=== PATIENT | female | born 1995 | race Caucasian/White ===

== ENCOUNTER 2024-09-10 13:01 | Outpatient (CLI) | payer MEDICAID, SELFPAY ==
--- NOTE | 2024-09-10 13:07 | XR_ITS ---
Examination: Biophysical profile, ultrasound Date and time of exam: September 10, 2024 1429 hours INDICATIONS: Diagnosis cholestasis of Technique: Multiple transabdominal sonographic images of the pelvis abdomen obtained. Attention is directed to the breathing movement, gross body movement, amniotic fluid volume and tone. Findings: Amniotic fluid index 12.4 cm Total biophysical profile is 8 of 8. breathing movement is 2. Gross body movement is 2. tone is 2. Qualitative amniotic fluid volume is 2 Impression: Biophysical profile is 8 of 8.
--- NOTE | 2024-09-10 13:08 | XR_ITS ---
Examination: Complete OB ultrasound greater than 14 weeks Date and time of exam: September 10, 2024 1439 hours INDICATIONS: Diagnosis cholestasis of Findings: Viable intrauterine single fetus with single amniotic sac presentation cephalic Cardiac motion 141 BPM Placenta posterior grade 3 Umbilical cord insertion 3 vessel seen Amniotic fluid index 12.3 cm Cervix 4.1 cm Ovaries obscured by bowel gas. Composite estimated gestational age based on BPD, head circumference, abdominal circumference, femur length is 37 weeks 1 day Estimated weight 3179 g. Survey of intracranial anatomy, spinal anatomy, abdominal anatomy, four-chamber heart performed with no abnormalities identified. Impression: Viable intrauterine gestation cephalic presentation.
[2024-09-10 13:20] VITALS: BP 132/81; PULSE 85
[2024-09-10 15:27] VITALS: BMI 32.8
[2024-09-10 15:30] VITALS: BP 132/81; PULSE 85; RESP 18; RESP 99; TEMP 36.9
== END 2024-09-10 15:15 | disposition home or self-care (01) ==
LOC: S4S1 13:02 → S4SX 13:03
PROVIDERS: Referring Provider Advanced Practice Midwife; Visit Provider Student in an Organized Health Care Education/Training Program
DX: O26.643 Intrahepatic cholestasis of pregnancy, third trimester (principal); K83.1 Obstruction of bile duct; Z3A.38 38 weeks gestation of pregnancy
CPT/HCPCS: 59025; 76805; 76819

== ENCOUNTER 2024-09-12 10:37 | Inpatient (IN) | payer MEDICAID, SELFPAY ==
[2024-09-12] VITALS (27 sets, daily range): BP systolic 100–129; BP diastolic 55–86; PULSE 65–102; RESP 18; TEMP 36.3–36.9; O2SAT 96–98; BMI 32.7
[2024-09-12 12:05] LABS: Basophils # (Auto) 0.1 Thou/mm3 (0.0-0.2); Basophils % (Auto) 1 % (0-2.5); Eosinophils # (Auto) 0.1 Thou/mm3 (0.0-0.5); Eosinophils % (Auto) 1 % (0-10); Hematocrit 36.2 % (36.0-46.0); Hemoglobin 12.4 g/dL (12.0-16.0); Immature Granulocytes % (Auto) 1 % (0-0); Immature Granulocytes Auto 0.09 Thou/mm3 (0.00-0.00); Lymphocytes # (Auto) 2.2 Thou/mm3 (1.0-4.8); Lymphocytes % (Auto) 22 % (10-50); Mean Corpuscular HGB Conc 34.3 g/dl (31.0-37.0); Mean Corpuscular Hemoglobin 27.5 pg (25.0-35.0); Mean Corpuscular Volume 80 fL (80-100); Monocytes # (Auto) 0.8 Thou/mm3 (0.0-0.8); Monocytes % (Auto) 8 % (0-12); Neutrophils % (Auto) 68 % (37-80); Nucleated Red Blood Cell % 0 /100 WBC (0); Platelet Count 200 Thou/mm3 (140-440); RDW Standard Deviation 42.5 fL (36.4-46.3); Red Blood Count 4.51 Miln/mm3 (4.00-5.20); White Blood Count 10.2 Thou/mm3 (3.6-11.0)
--- NOTE | 2024-09-12 12:17 | XR_ITS ---
Examination: age Limited Technique: Limited transabdominal sonographic images pelvis Exam date and time: September 12, 2024 1302 hrs. Indications: Preop induction, unknown presentation Findings: Viable intrauterine gestation cephalic presentation Cardiac motion 150 BPM Impression: Viable intrauterine gestation cephalic presentation
[2024-09-12 12:39] LABS: Syphilis Nonreactive (Nonreactive)
[2024-09-12 13:41] LABS: Amphetamine/Metham Scrn,Ur OB Negative (Negative); Benzoylecgonine Screen, Ur OB Negative (Negative); Opiate Screen,Urine OB Negative (Negative); THC Screen,Urine OB Negative (Negative)
[2024-09-12] MEDS: DINOPROSTONE 10 MG VAG.SUPP VAGINAL (15:22)
--- NOTE | 2024-09-12 18:53 | ESHP_ITS ---
Documentation for date of: 09/12/24 OB Labor/Induct. HPI History of Present Illness Chief complaint: scheduled IOL for presumed IHCP, slightly elevated LFTs : 1 History of sections: No History of : No DARIANA: 09/20/24 Gestational Age (weeks): 38 Gestational Age (days): 6 Indication for induction: other (Presumed intra-hepatic cholestasis of , slightly elevated LFTs) History of present illness: Patient presents for scheduled IOL. She has no regular/painful ctx. No LOF, no vaginal bleeding. Feels normal movement. Hadn't started the ursodiol yet. History of Present Dating criteria: based on 2nd trimester US only Adequate Care: No Ultrasounds: normal mid trimester US Narrative: -Presumed IHCP, Rx'd ursodiol but hadn't started it yet, slightly elevated LFTs -Starting BMI 33 -Elevated 1hr glucola with normal 3hr GTT -Chlamydia in treated with negative ELISEO -O negative MBT, received rhogam at 28wk -Rubella non-immune Labs Maternal Blood Type: O Neg Labs: Negative: RPR, Hepatitis B, Rubella Titre, HIV, Chlamydia, Gonorrhea and Group Beta Strep Review of Systems Review of Systems Narrative Review of Systems: Review of Systems Systems Reviewed: All systems reviewed, normal except as documented Constitutional Constitutional: Denies body ache(s), Denies chills, Denies fever(s) and Denies headache(s) ENT Ears, Nose, Mouth, and Throat: Denies headache(s) and Denies vertigo Cardiovascular Cardiovascular: Denies chest pain, Denies palpitations, Denies dyspnea and Denies syncope Respiratory Respiratory: Denies cough, Denies dyspnea Gastrointestinal Gastrointestinal: Denies nausea and Denies vomiting Neurologic Neurologic: Denies convulsions, Denies headache(s), Denies other visual disturbances, Denies syncope and Denies vertigo Past Medical History Surgical History SURGICAL: Negative Section OTHER SURGICAL HX: eye surgery Social History SOCIAL: No tobacco/ETOH/illicit drug use Past Medical History Comments PMH COMMENT: -Starting BMI 33 -Chlamydia in treated with negative ELISEO Meds Home Medications and Allergies Home Medications ?Medication ?Instructions ?Recorded ?Confirmed ?Type vit no.95-ferrous tab PO 09/12/24 History fumarate 28 mg-folic acid 800 mcg tablet () Allergies Allergy/AdvReac Type Severity Reaction Status Date / Time No Known Allergies Allergy Verified 09/12/24 10:40 OB Exam Physical Exam Vital signs: Temp Pulse Resp BP 98.2 F 75 18 128/70 09/12/24 15:30 09/12/24 15:25 09/12/24 15:30 09/12/24 15:25 Narrative: General: well developed, well nourished, no acute distress, conversant Cardiac: normal heart rate Lungs: breathing without distress Abdomen: soft, gravid, non-tender, no rebound or guarding Extremities: no pain with palpation of calves Detailed Labor and Delivery Exam Dilation (cm): 0 Effacement (%): 0 Cervix position: posterior station: -3 Consistency: firm Presentation: Vertex (by ultrasound) Membranes: intact monitor accelerations: 15x15 monitor decelerations: None retirement variability: Moderate (11-25) Contraction frequency (min): none OB Results Labs 09/12/24 11:10 Labs: Short CBC 09/12/24 Range/Units 11:10 WBC 10.2 (3.6-11.0) Thou/mm3 Hgb 12.4 (12.0-16.0) g/dL Hct 36.2 (36.0-46.0) % Plt Count 200 (140-440) Thou/mm3 Impressions Impression: Examination: age Limited Technique: Limited transabdominal sonographic images pelvis Exam date and time: September 12, 2024 1302 hrs. Indications: Preop induction, unknown presentation Findings: Viable intrauterine gestation cephalic presentation Cardiac motion 150 BPM Impression: Viable intrauterine gestation cephalic presentation OB Assessment & Plan Assessment and Plan (1) Cholestasis during in third trimester: Status: Acute Assessment and plan: Patient is a 29yo G1 with SIUP at 38&6wk presenting for IOL 2/2 presumed IHCP (bile acids pending, slightly elevated LFTs AST 48, ALT 74). SCE: closed/thick/high. Cephalic on ultrasound. EFW by Cody's: [id number]. Vitals wnl, benign exam. Reassuring assessment overall. care: Late to care 17wk but then good care with [facility] PMhx/PNC significant for: -Presumed IHCP, Rx'd ursodiol but hadn't started it yet, slightly elevated LFTs -Starting BMI 33 -Elevated 1hr glucola with normal 3hr GTT -Chlamydia in treated with negative ELISEO -O negative MBT, received rhogam at 28wk -Rubella non-immune Plan: -Admit to L&D -Establish IV, routine labs -CEFM -Regular diet [id number], then clear liquid diet in labor -[employer]/consent re: iol and -GBS status: negative -Will initiate IOL with cervidil x12 hours -Anticipate -Safe to proceed Regi Bryant MD (2) Obesity affecting : Status: Acute (3) Chlamydia infection affecting : Status: Acute (4) Rubella non-immune status, antepartum: Status: Acute (5) Rh negative status during : Status: Acute (2) Obesity affecting Qualifiers: Obesity type affecting : other obesity Trimester: third trimester Q ualified Code(s): O99.213 - Obesity complicating , third trimester; E66.89 - Other obesity not elsewhere classified (3) Chlamydia infection affecting Qualifiers: Trimester: second trimester Qualified Code(s): O98.812 - Other maternal infectious and parasitic diseases complicating , second trimester; A74.9 - Chlamydial infection, unspecified (5) Rh negative status during Qualifiers: Trimester: third trimester Qualified Code(s): O26.893 - Other specified related conditions, third trimester; Z67.91 - Unspecified blood type, Rh negative
[2024-09-13] VITALS (78 sets, daily range): BP systolic 85–137; BP diastolic 48–81; PULSE 58–100; RESP 18; TEMP 36.4–37.3; O2SAT 92–100
[2024-09-13] MEDS: RINGERS LACTATED 1000 ML 1,000 ML 100 ML IV ×3 (03:38→22:48)
[2024-09-13] MEDS: ACETAMINOPHEN 325 MG TABLET 650 MG PO (08:00)
[2024-09-13] MEDS: MISOPROSTOL 50 mCg TABLET PO ×4 (09:44→23:11)
--- NOTE | 2024-09-13 11:34 | PD.LDPN ---
Documentation for date of: 09/13/24 OB Labor Progress Note Pelvic Exam Dilation (cm): 0 Effacement (%): 0 station: -3 Contractions Contraction frequency: none Assessment and Plan Comments: Intrapartum Note Patient doing well. Cervidil was removed early this morning and cytotec delayed initiation 2/2 ctx too frequently. Eventually ctx spaced out and she received 1st dose of PO cytotec. Vitals wnl, afebrile Cat I FHRT SCE: 08/22/-2, anterior. Cervical aguayo bulb placed with 40cc NS, well tolerated. Will await aguayo bulb falling out Continue cytotec 50mcg PO Q4hr Continue to closely monitor Safe to proceed Regi Bryant MD
[2024-09-14] VITALS (35 sets, daily range): BP systolic 97–138; BP diastolic 53–81; PULSE 59–88; RESP 18; TEMP 36.6–36.8; O2SAT 88–100
--- NOTE | 2024-09-14 03:12 | PD.LDPN ---
Documentation for date of: 09/14/24 OB Labor Progress Note Pelvic Exam Dilation (cm): 4 Effacement (%): 50 station: -3 Contractions Contraction frequency: none Assessment and Plan Comments: Patient comfortable, was sleeping before exam. Vitals wnl, afebrile Fields cervical balloon tugged on and it came out easily. SCE: 50/-3. Cat I FHRT 4hr after last dose of PO cytotec, will initiate IV pitocin and titrate per protocol CEFM Safe to proceed Regi Bryant MD
[2024-09-14] MEDS: RINGERS LACTATED 1000 ML 1,000 ML 100 ML IV ×2 (06:07→16:45)
[2024-09-14] MEDS: OXYTOCIN in NS 30 units 30 UNIT/500 ML BAG IV (10:49)
[2024-09-14] MEDS: MISOPROSTOL 50 mCg TABLET 25 MCG PO (20:44)
--- NOTE | 2024-09-14 20:51 | PD.LDPN ---
Documentation for date of: 09/14/24 OB Labor Progress Note Pelvic Exam Dilation (cm): 4 Effacement (%): 50 station: -3 Contractions Contraction frequency: irregular Assessment and Plan Comments: Patient doing well, still in good spirits. Had some Brii. IV pitocin was up to 8mu, but she was completely comfortable. I spoke to RN about stopping pitocin and attempting vaginal cytotec since cervical exam still unfavorable without change. Vitals wnl, afebrile SCE: 50/-3, very posterior. 25mcg cytotec placed. Discussed plan of care with patient and partner. Plan to repeat cytotec 25mcg PV q4hr Ok to ambulate 1hr after cytotec placement with intermittent monitoring Regular diet ok [id number] until active labor, then clear liquids Safe to procceed Regi Bryant MD
[2024-09-15] VITALS (153 sets, daily range): BP systolic 85–142; BP diastolic 50–86; PULSE 59–99; RESP 18; TEMP 36.6–36.9; O2SAT 89–100
[2024-09-15] MEDS: MISOPROSTOL 50 mCg TABLET 25 MCG PO ×3 (01:00→09:40)
--- NOTE | 2024-09-15 15:26 | PD.LDPN ---
Documentation for date of: 09/15/24 OB Labor Progress Note Pain Control Pain control: tolerating well Pelvic Exam Dilation (cm): 4 Effacement (%): 60 station: -2 Amniotic membrane status: Ruptured Contractions Monitor mode: Internal Contraction frequency: 4 Contraction duration: 15 Contraction phase: Resting Contraction intensity: Mild Status status: Category l Assessment and Plan Plan OB labor note: begin Pitocin augmentation CNM Management MD Consulted (describe details below): Yes
[2024-09-16] VITALS (164 sets, daily range): BP systolic 93–147; BP diastolic 51–86; PULSE 61–108; RESP 15–18; TEMP 36.5–36.9; O2SAT 80–100
[2024-09-16] MEDS: Ampicillin Inj 2,000 MG in SODIUM CHLORIDE 0.9% (P) 100 ML 200 MG IV (06:57)
[2024-09-16] MEDS: MINERAL OIL 30 ML UDC TOP (07:55)
[2024-09-16] MEDS: OXYTOCIN in NS 20 units 20 UNIT/1,000 ML BAG 125 UNIT IV (08:00)
[2024-09-16] MEDS: MISOPROSTOL 200 mCg TABLET 800 MCG PR (08:04)
[2024-09-16] MEDS: OXYTOCIN INJ 10 UNIT/ML VIAL IM (08:06)
[2024-09-16] MEDS: TRANEXAMIC ACID 1,000 MG IVPB 1,000 MG/100 ML BAG 200 MG IV (08:20)
--- NOTE | 2024-09-16 08:29 | PD.LDPN ---
Documentation for date of: 09/16/24 OB Labor Progress Note Pain Control Pain control: epidural Pelvic Exam Dilation (cm): 10 Effacement (%): 90 station: +1 Amniotic membrane status: Ruptured Contractions Monitor mode: Internal Contraction frequency: 4 Contraction phase: Resting Contraction intensity: Mild Status status: Category l Assessment and Plan Pitocin rate (mU/min): 7 Assessment: active labor Plan OB labor note: continuous present management CNM Management MD Consulted (describe details below): Yes
--- NOTE | 2024-09-16 08:43 | OBDSUM_ITS ---
Data ([place]) Data Hx Section: No : 1 Para: 0 Term: 0 : 0 : 0 Delivery Data ([place]) Labor Data Stimulated/Augmented: Yes Induction: Yes Method: Cervical Ripening Balloon (cervidil x1, cytotec x2, pitocin) ROM Date: 09/15/24 ROM Time: 14:50 Rupture Type: AROM Amniotic Fluid: Clear Delivery Data EDC: 09/20/24 EDC calculated by:: ultrasound Labor Onset Stage 1 Date: 09/15/24 Labor Onset Stage 1 Time: 15:00 Labor Onset Stage 2 Date: 09/16/24 Labor Onset Stage 2 Time: 07:32 Delivery Date: 09/16/24 Delivery Time: 08:00 Gestational age (weeks): 39 Gestational age (days): 3 Placenta Delivery Date: 09/16/24 Placenta Delivery Time: 08:02 Delivered by: Mirna Lu Delivery nurse: Radha Jacques Delivery Method Delivery: Vaginal Delivery Type: Spontaneous Presentation: Vertex Position: OA Anesthesia Type Primary Anesthesia: Epidural Delivery Room Medications Intrapartum Medications: Antibiotics and Tocolytics Post Delivery Medications: Tocolytics and Cytotec Placenta Placenta Delivery: Spontaneous (inspected, intact) Placenta Cultures Obtained: No Placenta Sent for Examination: No Cord Sample: Cord Blood Obtained, Cord Gases Arterial and Cord Gases Venous Episiotomy Episiotomy: None Lacerations #1: Vaginal: 1st degree (2 small vag tear) Perineal repair Sutures used for repair: 3.0 Vicryl EBL Estimated blood loss (ml): 400 Umbilical Cord Umbilical Vessels: 3 Nuchal Cord: x1 Body Cord: x1 [place] Data ([place]) [place] Data Infant Gender: Female Weight Grams: 3230 1 Minute Total: 3 5 Minute Total: 9
[2024-09-16] MEDS: IBUPROFEN TAB 400 MG TABLET 800 MG PO ×2 (08:44→17:10)
[2024-09-16] MEDS: DOCUSATE SOD 100 MG CAPSULE PO ×2 (10:28→20:18)
[2024-09-16] MEDS: BENZO/LANO/ALOE (Dermoplast) 60 GM CAN 1 SPRAY TOP (10:28)
[2024-09-16] MEDS: ACETAMINOPHEN 325 MG TABLET 650 MG PO ×2 (10:28→14:22)
[2024-09-16] MEDS: Ampicillin Inj 1,000 MG in SODIUM CHLORIDE 0.9% (Popper) 50 ML 100 MG IV ×3 (11:11→23:57)
[2024-09-16] MEDS: Hydrocortisone Cr 1% 30 GM TUBE TOP (17:26)
[2024-09-16 19:07] LABS: Basophils % (Auto) 0 % (0-2.5); Eosinophils % (Auto) 0 % (0-10); Hematocrit 34.5 % (36.0-46.0); Hemoglobin 11.8 g/dL (12.0-16.0); Immature Granulocytes % (Auto) 1 % (0-0); Immature Granulocytes Auto 0.14 Thou/mm3 (0.00-0.00); Lymphocytes # (Auto) 1.6 Thou/mm3 (1.0-4.8); Lymphocytes % (Auto) 10 % (10-50); Mean Corpuscular HGB Conc 34.2 g/dl (31.0-37.0); Mean Corpuscular Volume 82 fL (80-100); Monocytes # (Auto) 1.2 Thou/mm3 (0.0-0.8); Monocytes % (Auto) 8 % (0-12); Neutrophils # (Auto) 13.1 Thou/mm3 (1.8-7.7); Neutrophils % (Auto) 81 % (37-80); Nucleated Red Blood Cell % 0 /100 WBC (0); Platelet Count 152 Thou/mm3 (140-440); RDW Standard Deviation 43.3 fL (36.4-46.3); Red Blood Count 4.22 Miln/mm3 (4.00-5.20); White Blood Count 16.2 Thou/mm3 (3.6-11.0)
[2024-09-17] VITALS: BP 125/82; PULSE 72; RESP 18; TEMP 36.7; O2SAT 97
[2024-09-17] MEDS: ACETAMINOPHEN 325 MG TABLET 650 MG PO (00:07)
[2024-09-17 04:00] VITALS: BP 123/71; PULSE 67; RESP 16; TEMP 36.8; O2SAT 98
[2024-09-17] MEDS: IBUPROFEN TAB 400 MG TABLET 800 MG PO (06:24)
[2024-09-17] MEDS: Ampicillin Inj 1,000 MG in SODIUM CHLORIDE 0.9% (Popper) 50 ML 100 MG IV (06:25)
--- NOTE | 2024-09-17 07:30 | PC.NURSE ---
Primo Lu at bedside poc explained to pt, CNM to put in discharge orders for pt to go home today.
--- NOTE | 2024-09-17 07:39 | ESPR_ITS ---
Subjective Subjective Interval history: No complaints of pain. No dizziness. Bonding breast-feeding Exam Vital Signs Temp Pulse Resp BP Pulse Ox O2 Del Method 98.2 F 67 16 123/71 98 Room Air 09/17/24 04:00 09/17/24 04:00 09/17/24 04:00 09/17/24 04:00 09/17/24 04:00 09/17/24 04:00 Narrative Exam Vital signs stable afebrile. Breasts are soft. Fundus firm below the umbilicus. Perineum intact no swelling. Small lochia. Uterus well involuted Objective Labs 09/16/24 18:15 Labs: Laboratory Results - last 24 hr 09/16/24 18:15 WBC 16.2 H D RBC 4.22 Hgb 11.8 L Hct 34.5 L MCV 82 MCH 28.0 MCHC 34.2 RDW Std Deviation 43.3 Plt Count 152 D Neut % (Auto) 81 H Lymph % (Auto) 10 [place] % (Auto) 8 Eos % (Auto) 0 Baso % (Auto) 0 Neut # (Auto) 13.1 H Lymph # (Auto) 1.6 [place] # (Auto) 1.2 H Eos # (Auto) 0.0 Baso # (Auto) 0.0 Immature Gran # (Auto) 0.14 H Absolute Nucleated RBC 0.00 Immature Gran % 1 H Nucleated RBC % 0 Assessment & Plan Problem List (1) Cholestasis during in third trimester: Status: Acute Assessment and plan: 24 hr pp, cholestasis resolved (2) Obesity affecting : Status: Acute (3) Chlamydia infection affecting : Status: Acute (4) Rubella non-immune status, antepartum: Status: Acute (5) Rh negative status during : Status: Acute Assessment Comment Assessment comment: 24 hr pp Plan Comment Plan Comment: Discharge home with baby. Continue vitamins and iron. Reviewed danger signs and symptoms and signs symptoms of infection. ER precautions parameters discussed. Increase rest and fluids. And patient can take Tylenol ibuprofen for pain. Return in 3 weeks visit Time Spent With Patient Time: Total time spent is greater than 50% in coordination of care (as documented) at patient's floor/unit and/or counseling patient:
--- NOTE | 2024-09-17 07:43 | ESDS_ITS ---
DS: Providers Provider Date of admission: 09/12/24 10:37 Primary care physician: Physician No Primary/Family Admitting Provider: Regi Bryant MD Attending Provider on Admission: Wilfredo Jasmine MD Consults: 09/16/24 08:53 Referral Routine Comment: Attending Provider on DC: Mirna Lu CNM Discharging Provider: Mirna Lu CNM DS: Diagnosis Problem List Completed Was Problem List Reviewed/Reconciled?: Yes Summary/Hosp Course Brief History: Patient presents for scheduled IOL. She has no regular/painful ctx. No LOF, no vaginal bleeding. Feels normal movement. Hadn't started the ursodiol yet. Peripartum Data Delivery Method: Normal Vaginal Delivery Episiotomy Description: None Laceration Description: yes (small bilateral vag laceration) Time Spent with Patient Time attestation: Total time spent providing and/or coordinating discharge services: Exam Vital Signs Temp Pulse Resp BP Pulse Ox O2 Del Method 98.2 F 67 16 123/71 98 Room Air 09/17/24 04:00 09/17/24 04:00 09/17/24 04:00 09/17/24 04:00 09/17/24 04:00 09/17/24 04:00 Discharge Plan Plan Patient Disposition: HOME (Self Care) Patient condition on transfer: Stable Prescriptions/Referrals Prescriptions/Med Rec: Continued PNV cmb#95-ferrous fumarate-FA [] 28 mg iron- 800 mcg tablet PO Patient Comments: TAKE 1 TABLET BY MOUTH EVERY DAY Discontinued cephalexin [Keflex] 500 mg capsule 500 mg PO Q8H Qty: 30 0RF clindamycin HCl 300 mg capsule 300 mg PO Q6H Qty: 20 0RF ibuprofen 600 mg tablet 600 mg PO TID PRN (Reason: fever or pain) Qty: 14 0RF prednisolone sodium phosphate 30 mg tablet,disintegrating 30 mg PO QDAY Qty: 5 0RF Referrals: No Primary/Family,Physician [Primary Care Provider] - Patient/Caregiver Discharge Instructions Meds to Beds: No Discharge Activity: resume usual activities Print Language: Citizen [place] Activity Restrictions/Additional Instructions: Discharge home with baby. Continue vitamins and iron. Tylenol ibuprofen for pain. Discussed danger signs and symptoms. Discussed ER precautions and parameters. Discussed signs symptoms of infection increase rest and fluids. Return in 3 weeks visit Stand Alone Forms: Noemy Award Info., Patient Portal Info Letter Discharge Order Discharge Orders: Discharge (Routine); Ordered 09/17/24 Ordered By: Mirna Lu Planned Discharge Date 09/17/24
--- NOTE | 2024-09-17 08:10 | PC.LAC ---
Mom states went well overnight, she is seeing some cluster feeding. Still seeing baby take lots of swallows. She is feeling her nipples are very tender. Gave mom lanolin and explained how to use as well as explaining for her to use her own milk to condition her nipples. Mom would like to make an appointment to do weigh in next week to make sure baby is doing well at the breast. Will get this set up for her.
[2024-09-17 08:30] VITALS: BP 111/74; PULSE 73; RESP 18; TEMP 36.4; O2SAT 98
--- NOTE | 2024-09-17 09:00 | PC.NURSE ---
Social Service at bedside, pt cleared to be d/c home today.
--- NOTE | 2024-09-17 09:27 | PC.SS ---
SIA Ward met with the patient Sussy Coleman regarding a medical social worker referral for late to care at 17 weeks. SIA met with the patient [id number] to address reason for referral. The patient appeared alert and oriented to self, place and situation. Patient was observed to be breast feeding her infant, bonding appropriately. No concerns noted. The patient informs this is her first born child. The patient informs that she lives at home with family and significant other Ky Gatica, who is father of baby. The patient reports having adequate support in the home and informs she is prepared to assume care of her infant. The patient reports having the necessary items to care for her child, car seat, diapers, etc. The patient denies any history of CWS. Patient denies substance use. Current toxicology report is negative. Patient denies having history of mental health or domestic violence. The patient reports being aligned with [facility] and reports having stable employment. The patient reports she was late to care due to having no knowledge of being . Patient reported having no identifying symptoms until later in her . The patient informs she connected to parental services with Dr. Mirna Michaels. The patient reports she was consistent with care following knowledge of confirmed . The patient reports planned for the . The patient informs she will be taking her new born for pediatric care to [facility]. Patient was provided education on PPD and explained about the symptoms. Patient was provided with community resources and was explained how services could be accessed if necessary. Patient requesting breast pump. Updated bed side nurse on the request if eligible. No other concerns/questions reported by the patient.
[2024-09-17] MEDS: DOCUSATE SOD 100 MG CAPSULE PO (09:31)
[2024-09-17 12:00] VITALS: BP 130/88; PULSE 65; RESP 20; TEMP 36.6; O2SAT 98
[2024-09-17] MEDS: MEASLES, MUMPS & RUBELLA VACC 0.5 ML VIAL SCi (12:02)
[2024-09-17 12:14] VITALS: BP 130/88; PULSE 65; RESP 20; TEMP 36.6
[2024-09-17 12:30] VITALS: BP 115/76; PULSE 72; RESP 18; TEMP 36.6
== END 2024-09-17 13:40 | disposition home or self-care (01) | DRG 560 ==
LOC: S4SX 09-16 12:01 → S4NX 09-16 15:31
PROVIDERS: Advanced Practice Midwife; Admitting Provider Obstetrics & Gynecology; Visit Provider Student in an Organized Health Care Education/Training Program
DX: O26.643 Intrahepatic cholestasis of pregnancy, third trimester (principal); E78.79 Other disorders of bile acid and cholesterol metabolism; K76.89 Other specified diseases of liver; Z37.0 Single live birth; Z3A.39 39 weeks gestation of pregnancy; O99.214 Obesity complicating childbirth; O70.0 First degree perineal laceration during delivery; O69.81X0 Labor and delivery complicated by cord around neck, without compression, not applicable or unspecified; O69.82X0 Labor and delivery complicated by other cord entanglement, without compression, not applicable or unspecified; O26.893 Other specified pregnancy related conditions, third trimester; Z67.91 Unspecified blood type, Rh negative; R79.89 Other specified abnormal findings of blood chemistry
CPT/HCPCS: 36415; 76815; 80307; 85025; 86780; 86850; 86870; 86900; 86901; 90707; J0290; J2590; J2790; J2795; J3010; J3490; J7050; J7120; S0191; A9270